=== PATIENT | male | born 1965 | race Caucasian/White ===

== ENCOUNTER 2018-09-28 12:30 | Day surgery (SDC) | payer OTHER | END 2018-09-28 22:48 | disposition home or self-care (01) | LOC: WOUND 12:30 | DX: L97.813 Non-pressure chronic ulcer of other part of right lower leg with necrosis of muscle (principal); L97.812 Non-pressure chronic ulcer of other part of right lower leg with fat layer exposed; E11.628 Type 2 diabetes mellitus with other skin complications; W60.XXXA Contact with nonvenomous plant thorns and spines and sharp leaves, initial encounter; Z79.84 Long term (current) use of oral hypoglycemic drugs | CPT/HCPCS: 87070; 87075; 87077; 87102; 87186; 87205; G0463 ==

== ENCOUNTER 2018-10-03 15:00 | Day surgery (SDC) | payer OTHER | END 2018-10-03 22:36 | disposition home or self-care (01) | LOC: WOUND 15:00 | DX: E10.622 Type 1 diabetes mellitus with other skin ulcer (principal); L97.919 Non-pressure chronic ulcer of unspecified part of right lower leg with unspecified severity; L97.813 Non-pressure chronic ulcer of other part of right lower leg with necrosis of muscle; W60.XXXA Contact with nonvenomous plant thorns and spines and sharp leaves, initial encounter; Z79.84 Long term (current) use of oral hypoglycemic drugs ==

== ENCOUNTER 2018-10-09 14:43 | Day surgery (SDC) | payer OTHER | END 2018-10-09 22:44 | disposition home or self-care (01) | LOC: WOUND 14:43 | PROC: 0HBKXZZ Excision of Right Lower Leg Skin, External Approach (ICD-10-PCS; principal; 2018-10-09) | DX: E11.622 Type 2 diabetes mellitus with other skin ulcer (principal); L97.812 Non-pressure chronic ulcer of other part of right lower leg with fat layer exposed; W60.XXXA Contact with nonvenomous plant thorns and spines and sharp leaves, initial encounter ==

== ENCOUNTER 2018-10-17 10:30 | Day surgery (SDC) | payer OTHER | END 2018-10-17 22:46 | disposition home or self-care (01) | LOC: WOUND 10:30 | DX: L97.812 Non-pressure chronic ulcer of other part of right lower leg with fat layer exposed (principal); E11.628 Type 2 diabetes mellitus with other skin complications; I87.2 Venous insufficiency (chronic) (peripheral); W60.XXXA Contact with nonvenomous plant thorns and spines and sharp leaves, initial encounter ==

== ENCOUNTER 2018-10-24 09:45 | Day surgery (SDC) | payer OTHER | END 2018-10-24 22:43 | disposition home or self-care (01) | LOC: WOUND 09:45 | PROC: 0HBKXZZ Excision of Right Lower Leg Skin, External Approach (ICD-10-PCS; principal; 2018-10-24) | DX: E11.622 Type 2 diabetes mellitus with other skin ulcer (principal); L97.812 Non-pressure chronic ulcer of other part of right lower leg with fat layer exposed ==

== ENCOUNTER 2018-11-07 00:09 | Day surgery (SDC) | payer OTHER | END 2018-11-07 22:41 | disposition home or self-care (01) | LOC: WOUND 00:09 | DX: L97.812 Non-pressure chronic ulcer of other part of right lower leg with fat layer exposed (principal); E11.65 Type 2 diabetes mellitus with hyperglycemia; W60.XXXA Contact with nonvenomous plant thorns and spines and sharp leaves, initial encounter; Z79.84 Long term (current) use of oral hypoglycemic drugs | CPT/HCPCS: G0463 ==

== ENCOUNTER 2018-11-28 00:16 | Day surgery (SDC) | payer OTHER | END 2018-11-28 22:38 | disposition home or self-care (01) | LOC: WOUND 00:16 | DX: L97.812 Non-pressure chronic ulcer of other part of right lower leg with fat layer exposed (principal); E11.65 Type 2 diabetes mellitus with hyperglycemia; W60.XXXD Contact with nonvenomous plant thorns and spines and sharp leaves, subsequent encounter; Z79.84 Long term (current) use of oral hypoglycemic drugs ==

== ENCOUNTER 2018-12-05 00:13 | Day surgery (SDC) | payer OTHER | END 2018-12-05 22:51 | disposition home or self-care (01) | LOC: WOUND 00:13 | DX: E11.622 Type 2 diabetes mellitus with other skin ulcer (principal); L97.812 Non-pressure chronic ulcer of other part of right lower leg with fat layer exposed; E11.40 Type 2 diabetes mellitus with diabetic neuropathy, unspecified; J44.9 Chronic obstructive pulmonary disease, unspecified; G47.30 Sleep apnea, unspecified; I10 Essential (primary) hypertension; Z86.711 Personal history of pulmonary embolism; Z86.718 Personal history of other venous thrombosis and embolism | CPT/HCPCS: G0463 ==

== ENCOUNTER 2018-12-12 00:21 | Day surgery (SDC) | payer OTHER | END 2018-12-12 22:36 | disposition home or self-care (01) | LOC: WOUND 00:21 | DX: E11.622 Type 2 diabetes mellitus with other skin ulcer (principal); L97.812 Non-pressure chronic ulcer of other part of right lower leg with fat layer exposed; E11.40 Type 2 diabetes mellitus with diabetic neuropathy, unspecified; I10 Essential (primary) hypertension; J44.9 Chronic obstructive pulmonary disease, unspecified; G47.30 Sleep apnea, unspecified; Z86.711 Personal history of pulmonary embolism; Z86.718 Personal history of other venous thrombosis and embolism; W60.XXXD Contact with nonvenomous plant thorns and spines and sharp leaves, subsequent encounter | CPT/HCPCS: G0463 ==

== ENCOUNTER 2018-12-19 01:05 | Day surgery (SDC) | payer OTHER | END 2018-12-19 23:19 | disposition home or self-care (01) | LOC: WOUND 01:05 | DX: E11.622 Type 2 diabetes mellitus with other skin ulcer (principal); L97.812 Non-pressure chronic ulcer of other part of right lower leg with fat layer exposed; E11.65 Type 2 diabetes mellitus with hyperglycemia; E11.40 Type 2 diabetes mellitus with diabetic neuropathy, unspecified; I10 Essential (primary) hypertension; J44.9 Chronic obstructive pulmonary disease, unspecified; G47.30 Sleep apnea, unspecified; Z86.718 Personal history of other venous thrombosis and embolism ==

== ENCOUNTER 2018-12-26 00:23 | Day surgery (SDC) | payer OTHER | END 2018-12-26 22:50 | disposition home or self-care (01) | LOC: WOUND 00:23 | DX: E11.622 Type 2 diabetes mellitus with other skin ulcer (principal); L97.823 Non-pressure chronic ulcer of other part of left lower leg with necrosis of muscle; E11.65 Type 2 diabetes mellitus with hyperglycemia; G47.30 Sleep apnea, unspecified; J44.9 Chronic obstructive pulmonary disease, unspecified; I10 Essential (primary) hypertension; E11.40 Type 2 diabetes mellitus with diabetic neuropathy, unspecified ==

== ENCOUNTER 2019-01-02 10:02 | Day surgery (SDC) | payer OTHER | END 2019-01-02 22:49 | disposition home or self-care (01) | LOC: WOUND 10:02 | DX: E11.622 Type 2 diabetes mellitus with other skin ulcer (principal); L97.812 Non-pressure chronic ulcer of other part of right lower leg with fat layer exposed; L97.823 Non-pressure chronic ulcer of other part of left lower leg with necrosis of muscle; E11.65 Type 2 diabetes mellitus with hyperglycemia | CPT/HCPCS: G0463 ==

== ENCOUNTER 2019-01-09 10:00 | Day surgery (SDC) | payer OTHER | END 2019-01-09 22:39 | disposition home or self-care (01) | LOC: WOUND 10:00 | DX: E11.622 Type 2 diabetes mellitus with other skin ulcer (principal); L97.812 Non-pressure chronic ulcer of other part of right lower leg with fat layer exposed; L97.823 Non-pressure chronic ulcer of other part of left lower leg with necrosis of muscle; E11.65 Type 2 diabetes mellitus with hyperglycemia | CPT/HCPCS: G0463 ==

== ENCOUNTER 2019-01-23 10:03 | Day surgery (SDC) | payer OTHER | END 2019-01-23 22:59 | disposition home or self-care (01) | LOC: WOUND 10:03 | DX: E11.622 Type 2 diabetes mellitus with other skin ulcer (principal); L97.812 Non-pressure chronic ulcer of other part of right lower leg with fat layer exposed; L97.823 Non-pressure chronic ulcer of other part of left lower leg with necrosis of muscle; E11.65 Type 2 diabetes mellitus with hyperglycemia; I10 Essential (primary) hypertension; E11.40 Type 2 diabetes mellitus with diabetic neuropathy, unspecified; G47.30 Sleep apnea, unspecified; J44.9 Chronic obstructive pulmonary disease, unspecified; Z86.711 Personal history of pulmonary embolism; Z86.718 Personal history of other venous thrombosis and embolism ==

== ENCOUNTER 2019-01-30 10:00 | Day surgery (SDC) | payer OTHER | END 2019-01-30 22:41 | disposition home or self-care (01) | LOC: WOUND 10:00 | DX: E11.622 Type 2 diabetes mellitus with other skin ulcer (principal); L97.812 Non-pressure chronic ulcer of other part of right lower leg with fat layer exposed; E11.65 Type 2 diabetes mellitus with hyperglycemia; E11.40 Type 2 diabetes mellitus with diabetic neuropathy, unspecified; I10 Essential (primary) hypertension; J44.9 Chronic obstructive pulmonary disease, unspecified; G47.30 Sleep apnea, unspecified; Z86.718 Personal history of other venous thrombosis and embolism; W60.XXXA Contact with nonvenomous plant thorns and spines and sharp leaves, initial encounter | CPT/HCPCS: Q4186 ==

== ENCOUNTER 2019-02-06 09:57 | Day surgery (SDC) | payer OTHER | END 2019-02-06 22:54 | disposition home or self-care (01) | LOC: WOUND 09:57 | DX: E11.622 Type 2 diabetes mellitus with other skin ulcer (principal); L97.812 Non-pressure chronic ulcer of other part of right lower leg with fat layer exposed; E11.65 Type 2 diabetes mellitus with hyperglycemia; E11.40 Type 2 diabetes mellitus with diabetic neuropathy, unspecified; I10 Essential (primary) hypertension; J44.9 Chronic obstructive pulmonary disease, unspecified; G47.30 Sleep apnea, unspecified; Z86.718 Personal history of other venous thrombosis and embolism; Z86.711 Personal history of pulmonary embolism | CPT/HCPCS: Q4186 ==

== ENCOUNTER 2019-02-13 10:00 | Day surgery (SDC) | payer OTHER | END 2019-02-13 23:06 | disposition home or self-care (01) | LOC: WOUND 10:00 | DX: E11.622 Type 2 diabetes mellitus with other skin ulcer (principal); L97.822 Non-pressure chronic ulcer of other part of left lower leg with fat layer exposed; E11.65 Type 2 diabetes mellitus with hyperglycemia; E11.40 Type 2 diabetes mellitus with diabetic neuropathy, unspecified; J44.9 Chronic obstructive pulmonary disease, unspecified; G47.30 Sleep apnea, unspecified; Z86.711 Personal history of pulmonary embolism; Z86.718 Personal history of other venous thrombosis and embolism | CPT/HCPCS: Q4186 ==

== ENCOUNTER 2019-02-27 09:49 | Day surgery (SDC) | payer OTHER | END 2019-02-27 23:20 | disposition home or self-care (01) | LOC: WOUND 09:49 | DX: E11.622 Type 2 diabetes mellitus with other skin ulcer (principal); L97.812 Non-pressure chronic ulcer of other part of right lower leg with fat layer exposed; E11.65 Type 2 diabetes mellitus with hyperglycemia; E11.40 Type 2 diabetes mellitus with diabetic neuropathy, unspecified; I10 Essential (primary) hypertension; J44.9 Chronic obstructive pulmonary disease, unspecified; G47.30 Sleep apnea, unspecified; Z86.718 Personal history of other venous thrombosis and embolism; Z86.711 Personal history of pulmonary embolism; W60.XXXA Contact with nonvenomous plant thorns and spines and sharp leaves, initial encounter | CPT/HCPCS: Q4186 ==

== ENCOUNTER 2019-03-06 10:07 | Day surgery (SDC) | payer OTHER | END 2019-03-06 22:46 | disposition home or self-care (01) | LOC: WOUND 10:07 | DX: E11.622 Type 2 diabetes mellitus with other skin ulcer (principal); L97.811 Non-pressure chronic ulcer of other part of right lower leg limited to breakdown of skin; E11.65 Type 2 diabetes mellitus with hyperglycemia; J44.9 Chronic obstructive pulmonary disease, unspecified; G47.30 Sleep apnea, unspecified; E11.40 Type 2 diabetes mellitus with diabetic neuropathy, unspecified; I10 Essential (primary) hypertension; Z86.718 Personal history of other venous thrombosis and embolism; Z86.711 Personal history of pulmonary embolism | CPT/HCPCS: Q4186 ==

== ENCOUNTER 2019-03-13 10:08 | Day surgery (SDC) | payer OTHER | END 2019-03-13 23:00 | disposition home or self-care (01) | LOC: WOUND | DX: E11.622 Type 2 diabetes mellitus with other skin ulcer (principal); L97.822 Non-pressure chronic ulcer of other part of left lower leg with fat layer exposed; L97.819 Non-pressure chronic ulcer of other part of right lower leg with unspecified severity; E11.65 Type 2 diabetes mellitus with hyperglycemia; E11.40 Type 2 diabetes mellitus with diabetic neuropathy, unspecified; I10 Essential (primary) hypertension; J44.9 Chronic obstructive pulmonary disease, unspecified; G47.30 Sleep apnea, unspecified; Z86.718 Personal history of other venous thrombosis and embolism | CPT/HCPCS: G0463 ==

== ENCOUNTER 2019-03-20 09:57 | Day surgery (SDC) | payer OTHER | END 2019-03-20 23:26 | disposition home or self-care (01) | LOC: WOUND 09:57 | DX: E11.622 Type 2 diabetes mellitus with other skin ulcer (principal); L97.822 Non-pressure chronic ulcer of other part of left lower leg with fat layer exposed; L97.819 Non-pressure chronic ulcer of other part of right lower leg with unspecified severity; E11.65 Type 2 diabetes mellitus with hyperglycemia; E11.40 Type 2 diabetes mellitus with diabetic neuropathy, unspecified; J44.9 Chronic obstructive pulmonary disease, unspecified; G47.30 Sleep apnea, unspecified; Z86.718 Personal history of other venous thrombosis and embolism; Z86.711 Personal history of pulmonary embolism | CPT/HCPCS: G0463 ==

== ENCOUNTER 2019-03-27 10:55 | Day surgery (SDC) | payer OTHER | END 2019-03-27 22:44 | disposition home or self-care (01) | LOC: WOUND 10:55 | DX: E11.622 Type 2 diabetes mellitus with other skin ulcer (principal); L97.822 Non-pressure chronic ulcer of other part of left lower leg with fat layer exposed; E11.65 Type 2 diabetes mellitus with hyperglycemia; Z48.00 Encounter for change or removal of nonsurgical wound dressing | CPT/HCPCS: G0463 ==

== ENCOUNTER 2019-04-03 09:58 | Day surgery (SDC) | payer OTHER | END 2019-04-03 23:07 | disposition home or self-care (01) | LOC: WOUND 09:58 | DX: E11.622 Type 2 diabetes mellitus with other skin ulcer (principal); E11.65 Type 2 diabetes mellitus with hyperglycemia; L97.822 Non-pressure chronic ulcer of other part of left lower leg with fat layer exposed; J44.9 Chronic obstructive pulmonary disease, unspecified; I10 Essential (primary) hypertension; E11.40 Type 2 diabetes mellitus with diabetic neuropathy, unspecified; G47.30 Sleep apnea, unspecified; W60.XXXD Contact with nonvenomous plant thorns and spines and sharp leaves, subsequent encounter | CPT/HCPCS: G0463 ==

== ENCOUNTER 2019-04-10 00:14 | Day surgery (SDC) | payer OTHER | END 2019-04-10 22:44 | disposition home or self-care (01) | LOC: WOUND 00:14 | DX: E11.622 Type 2 diabetes mellitus with other skin ulcer (principal); L97.822 Non-pressure chronic ulcer of other part of left lower leg with fat layer exposed; E11.65 Type 2 diabetes mellitus with hyperglycemia; Z86.718 Personal history of other venous thrombosis and embolism; Z86.711 Personal history of pulmonary embolism | CPT/HCPCS: G0463 ==

== ENCOUNTER 2019-04-24 00:20 | Day surgery (SDC) | payer OTHER | END 2019-04-24 22:47 | disposition home or self-care (01) | LOC: WOUND 00:20 | DX: E11.622 Type 2 diabetes mellitus with other skin ulcer (principal); L97.822 Non-pressure chronic ulcer of other part of left lower leg with fat layer exposed; E11.65 Type 2 diabetes mellitus with hyperglycemia; Z86.718 Personal history of other venous thrombosis and embolism; Z86.711 Personal history of pulmonary embolism | CPT/HCPCS: G0463 ==

== ENCOUNTER 2023-04-20 09:36 | Day surgery (SDC) | payer OTHER ==
[~2023-04-20] VITALS: Ht 195.6 cm; Wt 126.4 kg
[2023-04-20] MEDS ORDERED: Aspir 8181 MG PO (10:03)
[2023-04-20] MEDS ORDERED: FISH OIL 1,2001 EAC7 PO (10:03)
[2023-04-20] MEDS ORDERED: FENO160 PO (10:03)
[2023-04-20] MEDS ORDERED: GLIMEPIRIDE2 M2 PO (10:04)
[2023-04-20] MEDS ORDERED: PRAV20 (10:04)
[2023-04-20] MEDS ORDERED: PRINIVIL5 MG PO (10:04)
[2023-04-20] MEDS ORDERED: PIOGLITAZONE HC15 MG PO (10:04)
[2023-04-20] MEDS ORDERED: METF500 PO (10:05)
[2023-04-20] MEDS ORDERED: FLUTICASONE PRO12 GM (10:05)
[2023-04-20 11:38] VITALS: BP 126/67
== END 2023-04-20 11:41 | disposition home or self-care (01) ==
LOC: ORSCSDS 09:36
PROVIDERS: Internal Medicine Gastroenterology
PROC: 0DBP8ZX Excision of Rectum, Via Natural or Artificial Opening Endoscopic, Diagnostic (ICD-10-PCS; principal; 2023-04-20 10:30)
DX: Z12.11 Encounter for screening for malignant neoplasm of colon (principal); Z86.010 Personal history of colon polyps; D12.8 Benign neoplasm of rectum; K62.1 Rectal polyp; K57.30 Diverticulosis of large intestine without perforation or abscess without bleeding; K64.4 Residual hemorrhoidal skin tags; E11.40 Type 2 diabetes mellitus with diabetic neuropathy, unspecified; I10 Essential (primary) hypertension; J44.9 Chronic obstructive pulmonary disease, unspecified; G47.33 Obstructive sleep apnea (adult) (pediatric); E78.00 Pure hypercholesterolemia, unspecified; Z79.84 Long term (current) use of oral hypoglycemic drugs; Z79.899 Other long term (current) drug therapy; Z79.82 Long term (current) use of aspirin
CPT/HCPCS: 82947; 88305; J2704

== ENCOUNTER → 2024-09-05 | Outpatient (CLI) | payer OTHER ==
[~2024-09-05] MED LIST: Aspir 8181 MG PO; FENO160 PO; FISH OIL 1,2001 EAC7 PO; FLUTICASONE PRO12 GM; GLIMEPIRIDE2 M2 PO; METF500 PO; PIOGLITAZONE HC15 MG PO; PRAV20; PRINIVIL5 MG PO
[2024-09-05 12:10] LABS: BASOPHILS ABSOLUTE AUTO 0.06 K/mm3 (0.00-0.23); BASOPHILS PERCENT AUTO 1 % (0-2); EOSINOPHILS ABSOLUTE AUTO 0.15 K/mm3 (0.00-0.68); EOSINOPHILS PERCENT AUTO 2 % (0-6); Hematocrit 41.6 % (37.0-53.0); Hemoglobin 14.3 g/dL (13.5-17.5); IMMATURE GRAN ABSOLUTE AUTO 0.02 K/mm3 (0.00-0.10); IMMATURE GRAN PERCENT AUTO 0 % (0-1); LYMPHOCYTES ABSOLUTE AUTO 3.49 K/mm3 (0.84-5.20); LYMPHOCYTES PERCENT AUTO 35 % (21-46); MONOCYTES ABSOLUTE AUTO 0.79 K/mm3 (0.16-1.47); MONOCYTES PERCENT AUTO 8 % (4-13); Mean Corpuscular HGB 31.4 pg (26.0-34.0); Mean Corpuscular HGB Conc 34.4 g/dL (31.5-36.5); Mean Corpuscular Volume 91 fL (80-100); Mean Platelet Volume 10.2 fL (9.1-12.4); NEUTROPHILS ABSOLUTE AUTO 5.41 K/mm3 (1.96-9.15); NEUTROPHILS PERCENT AUTO 55 % (41-73); Platelet Count 311 K/mm3 (150-400); RDW Coefficient Variation 13.2 % (11.7-14.2); RDW Standard Deviation 44.3 fL (35.1-46.3); Red Blood Cell Count 4.55 M/mm3 (4.30-5.90); White Blood Cell Count 9.92 K/mm3 (4.00-11.30)
[2024-09-05 12:30] LABS: Albumin, Blood 3.9 g/dL (3.4-5.0); Bilirubin, Total 0.4 mg/dL (0.1-1.0); Bun/Creatinine Ratio 20.3 (12.0-20.0); Calcium, Blood 9.7 mg/dL (8.5-10.1); Creatinine, Blood 0.89 mg/dL (0.60-1.20); Potassium, Blood 4.3 mmol/L (3.5-5.5); Total Protein, Blood 7.9 g/dL (6.4-8.2)
== END ==
LOC: LAB SHORT 11:05 → LAB 11:05
PROVIDERS: Physician Assistant
DX: R10.9 Unspecified abdominal pain (principal); R11.0 Nausea; R30.0 Dysuria
CPT/HCPCS: 80053; 83690; 85025; 87086

== ENCOUNTER → 2025-02-25 | Outpatient (CLI) | payer OTHER, MEDICARE | END | disposition home or self-care (01) | LOC: LAB 05:34 → LAB SHORT 05:34 → LAB FUT 01-25 12:10 | DX: N20.2 Calculus of kidney with calculus of ureter (principal) | CPT/HCPCS: 81050 ==